=== PATIENT | male | born 2000 | race Two or more races ===

== ENCOUNTER 2022-05-22 19:29 | Emergency (ER) | payer OTHER, BC ==
[~2022-05-22 19:29] MED LIST: Iopamidol 300 61% 100 ML VIAL FS ONE
[2022-05-22] MEDS ORDERED: Ondansetron PF 4 MG/2 ML Vial ONE (20:30)
[2022-05-22] MEDS ORDERED: Ondansetron ODT 4 MG TAB ONE (20:42)
[2022-05-22] MEDS ORDERED: Metoclopramide HCl 10 MG/2 ML VIAL ONE (21:37)
[2022-05-22 21:39] LABS: #Basophils 0.1 10x3/uL (0.0-0.2); #Monocytes 1.2 10x3/uL (0.0-1.1); #Neutrophils 9.3 10x3/uL (1.5-8.4); %Basophils 0.5 % (0.0-2.0); %Eosinophils 0.1 % (0.0-6.0); %Lymphocytes 16.2 % (18.0-47.0); %Monocytes 9.3 % (0.0-10.0); %Neutrophils 73.7 % (40.0-75.0); Hemoglobin 16.4 g/dL (13.5-17.5); Mean Corpuscular HGB CONC 34.5 g/dL (32.0-36.0); Mean Corpuscular Hemoglobin 28.3 pg (27.0-33.0); Mean Corpuscular Volume 82.1 fl (81.2-95.1); Mean Platelet Volume 9.9 fl (7.4-10.4); Platelet Count 294 10x3/uL (150-450); RBC Distribution Width 13.1 % (11.5-14.5); White Blood Cell (WBC) Count 12.7 10x3/uL (3.5-10.5)
[2022-05-22 21:51] LABS: ALT (SGPT) 22 U/L (8-55); AST (SGOT) 30 U/L (5-34); Albumin 4.5 g/dL (3.5-5.0); Alkaline Phosphatase 113 U/L (40-110); Anion Gap 15 mmol/L (10-20); BUN (Urea Nitrogen) 7 mg/dL (8.9-20.6); Bilirubin, Total 0.9 mg/dL (0.2-1.2); Calc. Creatinine Clearance 0 mL/min (70-130); Calcium 9.4 mg/dL (7.8-10.44); Carbon Dioxide 26 mmol/L (22-29); Chloride 100 mmol/L (98-107); Estimated GFR 122; Globulin 3.1 g/dL (2.4-3.5); Glucose 108 mg/dL (70-105); Potassium 3.5 mmol/L (3.5-5.1); Protein, Total 7.6 g/dL (6.0-8.3); Sodium 137 mmol/L (136-145)
[2022-05-22 22:38] LABS: Bilirubin Neg (Negative); Blood, Urine 50 (Negative); Glucose, Urine (Dipstick) Normal (Negative); Ketone, Urine 50 mg/dL (Negative); Leukocyte 25 (Negative); Nitrite Negative (Negative); Protein, Urine (Dipstick) 15 mg/dl (Neg-Trace); Urobilinogen Normal mg/dL (Less than 2)
[2022-05-22 22:43] LABS: Clarity Hazy (Clear)
[2022-05-22 22:49] LABS: Squamous Epithelial 0-3 HPF (0-3); WBC/HPF 0-3 HPF (0-3)
== END 2022-05-22 23:17 | disposition home or self-care (01) ==
LOC: CSHERS 19:29
DX: R11.2 Nausea with vomiting, unspecified (principal); V49.10XA Passenger injured in collision with unspecified motor vehicles in nontraffic accident, initial encounter; Y92.410 Unspecified street and highway as the place of occurrence of the external cause
CPT/HCPCS: 70450; 74177; 80053; 81003; 81015; 85025; 96361; 96365; J2405; J2765; Q0162; Q9967